=== PATIENT | female | born 1980 | race Caucasian/White ===

== ENCOUNTER 2019-06-04 18:36 | Emergency (ER) | payer OTHER ==
[2019-06-04 18:42] VITALS: RESP 16; TEMP 98.2
[2019-06-04] MEDS ORDERED: SODIUM CHLORIDE 0.9% 1,000 ML IV STA (19:04)
[2019-06-04 19:06] LABS: Glucose,Whole Blood 90 mg/dL (75-99)
[2019-06-04 19:22] LABS: Basophils % (A) 1 %; Eosinophils # (A) 0.1 k/uL (0-0.7); Eosinophils % (A) 1 %; HCT 40.2 % (34.0-46.0); HGB 13.4 gm/dL (11.4-16.0); Lymphocytes # (A) 3.4 k/uL (1.0-4.8); Lymphocytes % (A) 55 %; MCH 30.7 pg (25.0-35.0); MCHC 33.3 g/dL (31.0-37.0); MCV 92.1 fL (80.0-100.0); Mean Platelet Volume 8.1; Monocytes # (A) 0.3 k/uL (0-1.0); Monocytes % (A) 5 %; Neutrophils # (A) 2.1 k/uL (1.3-7.7); Neutrophils % (A) 34 %; Platelet Count 206 k/uL (150-450); RBC 4.36 m/uL (3.80-5.40); RDW 13.5 % (11.5-15.5); WBC 6.2 k/uL (3.8-10.6)
[2019-06-04 19:27] LABS: Appearance,Urine Clear (Clear); Bacteria,Urine Rare /hpf; Bilirubin,Urine Negative (Negative); Blood,Urine Negative (Negative); Color,Urine Yellow; Glucose,Urine (UA) Negative (Negative); Ketones,Urine Negative (Negative); Leukocyte Esterase,Urine Small (Negative); Mucus,Urine Occasional /hpf; Nitrite,Urine Negative (Negative); Protein,Urine Negative (Negative); RBC,Urine <1 /hpf (0-5); Specific Gravity,Urine 1.014 (1.001-1.035); Squamous Epithelial Cell,Urine <1 /hpf (0-4); Urobilinogen,Urine <2.0 mg/dL (<2.0); WBC,Urine 6 /hpf (0-5)
[2019-06-04 19:32] LABS: ALT 12 U/L (9-52); AST 22 U/L (14-36); African American GFR (CKD) >90 (>60 ml/min/1.73 sqM); Albumin 4.6 g/dL (3.5-5.0); Alkaline Phosphatase 44 U/L (38-126); Anion Gap 12 mmol/L; Blood Urea Nitrogen 12 mg/dL (7-17); Calcium 9.7 mg/dL (8.4-10.2); Carbon Dioxide 24 mmol/L (22-30); Chloride 103 mmol/L (98-107); Glucose 93 mg/dL (74-99); INR 0.9 (<1.2); Partial Thromboplastin Time 23.8 sec (22.0-30.0); Potassium 4.1 mmol/L (3.5-5.1); Prothrombin Time 10.1 sec (9.0-12.0); Sodium 139 mmol/L (137-145); Total Bilirubin 0.6 mg/dL (0.2-1.3); Total Protein 7.3 g/dL (6.3-8.2)
--- NOTE | 2019-06-04 19:41 | ED ---
General Adult HPI - General Chief complaint: Syncope Stated complaint: NEAR SYNCOPE X 2, GI ISSUES Time Seen by Provider: 06/04/19 18:48 Source: patient Mode of arrival: ambulatory Limitations: no limitations - History of Present Illness Initial comments: 39-year-old female patient presents to the emergency department today for evaluation after having 2 episodes of near-syncope today. Patient states that she was driving when she suddenly had onset of shortness of breath and dizziness. Patient states she felt like she was going to pass out. States that she did tap puller and switched places with her passenger. States when she sat down on the passenger states she became dizzy again and felt again like she was when the past out. Patient states that the feelings did resolve and she now feels well. She denies any chest pain with the episode. He denies any cough, hemoptysis, chest tightness, headache, blurred vision, or double vision. Heavenly t states that over the last several months she's been having issues with constipation. Patient states she has been taking stool softeners and fiber supplement without much relief. Patient states she is scheduled for colonoscopy at the end of this week with Dr. Holder. Patient states that she has been having a vague suprapubic pain. States it is very dull. Does not radiate to her back. She denies any abnormal vaginal bleeding or discharge. Denies any chance of . She denies fever or chills. Patient denies any recent rash, f nausea, vomiting, back pain, numbness, tingling, hematuria, dysuria, urinary urgency, urinary frequency, or any other complaints. Patient states she did eat normally today and has never had problems with hypoglycemia. - Related Data Allergies Allergy/AdvReac Type Severity Reaction Status Date / Time No Known Allergies Allergy Verified 06/04/19 18:42 Review of Systems ROS Statement: Those systems with pertinent positive or pertinent negative responses have been documented in the HPI. ROS Other: All systems not noted in ROS Statement are negative. Past Medical History Past Medical History: No Reported History History of Any Multi-Drug Resistant Organisms: None Reported Past Surgical History: No Surgical Hx Reported Past Psychological History: No Psychological Hx Reported Smoking Status: Never smoker Past Alcohol Use History: Occasional Past Drug Use History: None Reported General Exam Limitations: no limitations General appearance: alert, in no apparent distress, other (Physical well- developed, well-nourished adult female patient in no acute distress. Vital signs upon presentation are temperature 98.2F, pulse 80, respirations 16, blood pressure 139/81, pulse ox 100% on room air.) Eye exam: Present: normal appearance, PERRL, EOMI. Absent: scleral icterus, conjunctival injection, nystagmus, periorbital swelling ENT exam: Present: normal exam, normal oropharynx, mucous membranes moist Respiratory exam: Present: normal lung sounds bilaterally. Absent: respiratory distress, wheezes, rales, rhonchi, stridor Cardiovascular Exam: Present: regular rate, normal rhythm, normal heart sounds. Absent: systolic murmur, diastolic murmur, rubs, gallop, clicks GI/Abdominal exam: Present: soft, tenderness (Mild suprapubic tenderness), normal bowel sounds. Absent: distended, guarding, rebound, rigid Neurological exam: Present: alert, oriented X3, CN II-XII intact Psychiatric exam: Present: normal affect, normal mood Skin exam: Present: warm, dry, intact, normal color. Absent: rash Course Vital Signs 06/04/19 06/04/19 18:38 22:32 Temperature 98.2 F Pulse Rate 80 83 Respiratory 16 16 Rate Blood Pressure 139/81 123/90 O2 Sat by Pulse 100 98 Oximetry EKG Findings - EKG Comments: EKG Findings:: EKG obtained at 1918 shows normal sinus rhythm with a ventricular rate of 70, KS interval 132, QRS duration 78, QT 412, QTC 444. No evidence of ST elevation or depression. Medical Decision Making - Medical Decision Making 39-year-old female patient presents to the emergency department today for evaluation after having 2 episodes where she felt like she was going to pass out. Physical examination is unremarkable. She is neurologically intact with no focal deficits. Abdomen is soft and exhibits mild suprapubic tenderness. EKG shows normal sinus rhythm. Labs reviewed and did reveal hypothyroid but no other abnormalities. T4 is normal. She'll be discharged home at this time to increase fluids. Follow up with her primary care physician for recheck in 1-2 days. Return parameters were discussed in detail. She verbalizes understanding and agrees with this plan. - Lab Data Result diagrams: 06/04/19 18:55 06/04/19 18:55 Lab Results 06/04/19 06/04/19 06/04/19 Range/Units 18:55 18:55 18:55 WBC 6.2 (3.8-10.6) k/uL RBC 4.36 (3.80-5.40) m/uL Hgb 13.4 (11.4-16.0) gm/dL Hct 40.2 (34.0-46.0) % MCV 92.1 (80.0-100.0) fL MCH 30.7 (25.0-35.0) pg MCHC 33.3 (31.0-37.0) g/dL RDW 13.5 (11.5-15.5) % Plt Count 206 (150-450) k/uL Neutrophils % 34 % Lymphocytes % 55 % Monocytes % 5 % Eosinophils % 1 % Basophils % 1 % Neutrophils # 2.1 (1.3-7.7) k/uL Lymphocytes # 3.4 (1.0-4.8) k/uL Monocytes # 0.3 (0-1.0) k/uL Eosinophils # 0.1 (0-0.7) k/uL Basophils # 0.0 (0-0.2) k/uL PT 10.1 (9.0-12.0) sec INR 0.9 (<1.2) APTT 23.8 (22.0-30.0) sec Sodium 139 (137-145) mmol/L Potassium 4.1 (3.5-5.1) mmol/L Chloride 103 (98-107) mmol/L Carbon Dioxide 24 (22-30) mmol/L Anion Gap 12 mmol/L BUN 12 (7-17) mg/dL Creatinine 0.76 (0.52-1.04) mg/dL Est GFR (CKD-EPI)AfAm >90 (>60 ml/min/1.73 sqM) Est GFR (CKD-EPI)NonAf >90 (>60 ml/min/1.73 sqM) Glucose 93 (74-99) mg/dL POC Glucose (mg/dL) (75-99) mg/dL POC Glu Circle Saw Operator ID Calcium 9.7 (8.4-10.2) mg/dL Total Bilirubin 0.6 (0.2-1.3) mg/dL AST 22 (14-36) U/L ALT 12 (9-52) U/L Alkaline Phosphatase 44 (38-126) U/L Troponin I (0.000-0.034) ng/mL Total Protein 7.3 (6.3-8.2) g/dL Albumin 4.6 (3.5-5.0) g/dL TSH 8.540 H (0.465-4.680) mIU/L Free T4 1.13 (0.78-2.19) ng/dL Urine Color Urine Appearance (Clear) Urine pH (5.0-8.0) Ur Specific Burley (1.001-1.035) Urine Protein (Negative) Urine Glucose (UA) (Negative) Urine Ketones (Negative) Urine Blood (Negative) Urine Nitrite (Negative) Urine Bilirubin (Negative) Urine Urobilinogen (<2.0) mg/dL Ur Leukocyte Esterase (Negative) Urine RBC (0-5) /hpf Urine WBC (0-5) /hpf Ur Squamous Epith Cells (0-4) /hpf Urine Bacteria (None) /hpf Urine Mucus (None) /hpf Urine HCG, Qual (Not Detectd) 06/04/19 06/04/19 06/04/19 Range/Units 18:55 18:55 18:55 WBC (3.8-10.6) k/uL RBC (3.80-5.40) m/uL Hgb (11.4-16.0) gm/dL Hct (34.0-46.0) % MCV (80.0-100.0) fL MCH (25.0-35.0) pg MCHC (31.0-37.0) g/dL RDW (11.5-15.5) % Plt Count (150-450) k/uL Neutrophils % % Lymphocytes % % Monocytes % % Eosinophils % % Basophils % % Neutrophils # (1.3-7.7) k/uL Lymphocytes # (1.0-4.8) k/uL Monocytes # (0-1.0) k/uL Eosinophils # (0-0.7) k/uL Basophils # (0-0.2) k/uL PT (9.0-12.0) sec INR (<1.2) APTT (22.0-30.0) sec Sodium (137-145) mmol/L Potassium (3.5-5.1) mmol/L Chloride (98-107) mmol/L Carbon Dioxide (22-30) mmol/L Anion Gap mmol/L BUN (7-17) mg/dL Creatinine (0.52-1.04) mg/dL Est GFR (CKD-EPI)AfAm (>60 ml/min/1.73 sqM) Est GFR (CKD-EPI)NonAf (>60 ml/min/1.73 sqM) Glucose (74-99) mg/dL POC Glucose (mg/dL) (75-99) mg/dL POC Glu Circle Saw Operator ID Calcium (8.4-10.2) mg/dL Total Bilirubin (0.2-1.3) mg/dL AST (14-36) U/L ALT (9-52) U/L Alkaline Phosphatase (38-126) U/L Troponin I <0.012 (0.000-0.034) ng/mL Total Protein (6.3-8.2) g/dL Albumin (3.5-5.0) g/dL TSH (0.465-4.680) mIU/L Free T4 (0.78-2.19) ng/dL Urine Color Yellow Urine Appearance Clear (Clear) Urine pH 6.0 (5.0-8.0) Ur Specific Burley 1.014 (1.001-1.035) Urine Protein Negative (Negative) Urine Glucose (UA) Negative (Negative) Urine Ketones Negative (Negative) Urine Blood Negative (Negative) Urine Nitrite Negative (Negative) Urine Bilirubin Negative (Negative) Urine Urobilinogen <2.0 (<2.0) mg/dL Ur Leukocyte Esterase Small H (Negative) Urine RBC <1 (0-5) /hpf Urine WBC 6 H (0-5) /hpf Ur Squamous Epith Cells <1 (0-4) /hpf Urine Bacteria Rare H (None) /hpf Urine Mucus Occasional H (None) /hpf Urine HCG, Qual Not Detected (Not Detectd) 06/04/19 Range/Units 19:04 WBC (3.8-10.6) k/uL RBC (3.80-5.40) m/uL Hgb (11.4-16.0) gm/dL Hct (34.0-46.0) % MCV (80.0-100.0) fL MCH (25.0-35.0) pg MCHC (31.0-37.0) g/dL RDW (11.5-15.5) % Plt Count (150-450) k/uL Neutrophils % % Lymphocytes % % Monocytes % % Eosinophils % % Basophils % % Neutrophils # (1.3-7.7) k/uL Lymphocytes # (1.0-4.8) k/uL Monocytes # (0-1.0) k/uL Eosinophils # (0-0.7) k/uL Basophils # (0-0.2) k/uL PT (9.0-12.0) sec INR (<1.2) APTT (22.0-30.0) sec Sodium (137-145) mmol/L Potassium (3.5-5.1) mmol/L Chloride (98-107) mmol/L Carbon Dioxide (22-30) mmol/L Anion Gap mmol/L BUN (7-17) mg/dL Creatinine (0.52-1.04) mg/dL Est GFR (CKD-EPI)AfAm (>60 ml/min/1.73 sqM) Est GFR (CKD-EPI)NonAf (>60 ml/min/1.73 sqM) Glucose (74-99) mg/dL POC Glucose (mg/dL) 90 (75-99) mg/dL POC Glu Circle Saw Operator ID Yvette Delgado Calcium (8.4-10.2) mg/dL Total Bilirubin (0.2-1.3) mg/dL AST (14-36) U/L ALT (9-52) U/L Alkaline Phosphatase (38-126) U/L Troponin I (0.000-0.034) ng/mL Total Protein (6.3-8.2) g/dL Albumin (3.5-5.0) g/dL TSH (0.465-4.680) mIU/L Free T4 (0.78-2.19) ng/dL Urine Color Urine Appearance (Clear) Urine pH (5.0-8.0) Ur Specific Burley (1.001-1.035) Urine Protein (Negative) Urine Glucose (UA) (Negative) Urine Ketones (Negative) Urine Blood (Negative) Urine Nitrite (Negative) Urine Bilirubin (Negative) Urine Urobilinogen (<2.0) mg/dL Ur Leukocyte Esterase (Negative) Urine RBC (0-5) /hpf Urine WBC (0-5) /hpf Ur Squamous Epith Cells (0-4) /hpf Urine Bacteria (None) /hpf Urine Mucus (None) /hpf Urine HCG, Qual (Not Detectd) - Radiology Data Radiology results: report reviewed, image reviewed Two-view x-ray of the chest is obtained. Report reviewed in its entirety. Impression by Dr. Edwards shows no acute findings. KUB x-ray of the abdomen is obtained. Report was reviewed in its entirety. Impression by Dr. Edwards shows nonobstructive bowel gas pattern. Moderate amount of stool throughout the colon. Disposition Clinical Impression: Near syncope, Abdominal pain Disposition: HOME SELF-CARE Condition: Good Instructions (If sedation given, give patient instructions): Abdominal Pain (ED), Near Syncope (ED) Additional Instructions: Increase fluids. Rest. Follow up with her primary care physician for recheck as possible. Return to the emergency Department for any new, worsening, or conc erning symptoms. Is patient prescribed a controlled substance at d/c from ED?: No Referrals: Ansley Hickey MD [Primary Care Provider] - 1-2 days Time of Disposition: 22:10
[2019-06-04 21:26] LABS: T4, Free (Free Thyroxine) 1.13 ng/dL (0.78-2.19)
--- NOTE | 2019-06-04 21:38 | XR ---
EXAM: XR Abdomen, 2 Views CLINICAL HISTORY: ITS.REASON XR Reason: Pain TECHNIQUE: Frontal view of the abdomen/pelvis with upright view of the abdomen. COMPARISON: No relevant prior studies available. FINDINGS: Intraperitoneal space: No free air. Gastrointestinal tract: Moderate stool throughout the colon. No dilation. Bones/joints: Unremarkable. IMPRESSION: Nonobstructive bowel gas pattern. Moderate amount of stool throughout the colon.
--- NOTE | 2019-06-04 21:41 | XR ---
EXAM: XR Chest, 2 Views CLINICAL HISTORY: ITS.REASON XR Reason: syncope TECHNIQUE: Frontal and lateral views of the chest. COMPARISON: No relevant prior studies available. FINDINGS: Lungs: Unremarkable. No consolidation. Pleural space: Unremarkable. No pneumothorax. Heart: Unremarkable. No cardiomegaly. Mediastinum: Unremarkable. Bones/joints: Unremarkable. IMPRESSION: No acute findings.
[2019-06-04 22:33] VITALS: BP 123/90; PULSE 83
== END 2019-06-04 22:33 | disposition home or self-care (01) ==
LOC: EC 18:36
DX: R55 Syncope and collapse (principal); R10.9 Unspecified abdominal pain; R42 Dizziness and giddiness; R06.02 Shortness of breath
CPT/HCPCS: 36415; 71046; 74018; 80053; 81001; 81025; 84439; 84443; 84484; 85025; 85610; 85730; 87086; 93005; 96360; 96361; 99284

== ENCOUNTER 2019-06-09 16:54 | Emergency (ER) | payer OTHER ==
[2019-06-09 17:06] VITALS: RESP 18
[2019-06-09 18:24] LABS: HCT 39.2 % (34.0-46.0); HGB 12.9 gm/dL (11.4-16.0); MCH 30.8 pg (25.0-35.0); MCV 93.3 fL (80.0-100.0); Mean Platelet Volume 7.9; Platelet Count 204 k/uL (150-450); RDW 12.4 % (11.5-15.5)
[2019-06-09 18:32] LABS: ALT 12 U/L (9-52); AST 22 U/L (14-36); African American GFR (CKD) >90 (>60 ml/min/1.73 sqM); Albumin 4.7 g/dL (3.5-5.0); Alkaline Phosphatase 47 U/L (38-126); Anion Gap 9 mmol/L; Blood Urea Nitrogen 12 mg/dL (7-17); Carbon Dioxide 27 mmol/L (22-30); Chloride 104 mmol/L (98-107); Glucose 87 mg/dL (74-99); Potassium 4.5 mmol/L (3.5-5.1); Sodium 140 mmol/L (137-145); Total Bilirubin 0.4 mg/dL (0.2-1.3); Total Protein 7.5 g/dL (6.3-8.2)
[2019-06-09 18:49] LABS: T4, Free (Free Thyroxine) 1.26 ng/dL (0.78-2.19)
--- NOTE | 2019-06-09 19:06 | ED ---
General Adult HPI - General Chief complaint: Dizziness Stated complaint: DIZZINESS Time Seen by Provider: 06/09/19 17:42 Source: patient Mode of arrival: ambulatory Limitations: no limitations - History of Present Illness Initial comments: Patient is a 39-year-old female presents emergency Department with a near syncope episode. Patient reports earlier today she was in the grocery store when she suddenly became dizzy but did not fall. Patient reports she had to sit down to stabilize herself. Patient reports she was at the emergency department a few days ago for the same reason and the workup only revealed a mildly elevated free T4. Patient denies previous history of thyroid problems. Patient denies nausea, vomiting, diarrhea, headache, blurry vision, chest pain or chest tightness. Patient does report anxiety but denies panic attacks. Patient reports the only recent changes in her medication regimen included the addition of Colace. - Related Data Allergies Allergy/AdvReac Type Severity Reaction Status Date / Time No Known Allergies Allergy Verified 06/04/19 18:42 Review of Systems ROS Statement: Those systems with pertinent positive or pertinent negative responses have been documented in the HPI. ROS Other: All systems not noted in ROS Statement are negative. Past Medical History Past Medical History: No Reported History History of Any Multi-Drug Resistant Organisms: None Reported Past Surgical History: No Surgical Hx Reported Past Psychological History: No Psychological Hx Reported Smoking Status: Never smoker Past Alcohol Use History: Occasional Past Drug Use History: None Reported General Exam - General Exam Comments Initial Comments: General: Well-developed well-nourished distress HEENT: Normocephalic/atraumatic, PERLL, pharynx erythema, swallowing well, EAC no erythema, no exudates, TM clear, no cervical lymph nodes Neck: Supple, nontender, trachea midline Chest/Lungs: Normal respirations, no signs of respiratory distress clear to ausc ultation bilaterally no wheezes, rales, rhonchi Cardiac: Regular rate and rhythm, normal S1-S2, no murmurs rubs or gallops Abdomen/GI: Soft nontender, bowel sounds equal or quadrant x4, no guarding, no rebound no CVA tenderness Musculoskeletal: Nontender, full range of motion, no edema, strength equal bilaterally Skin: Warmth, no rashes or lesions, no cyanosis or diaphoresis Neurologic: AAO x 3, CN 2-12 intact, Psychiatric: Mood and affect normal, judgment normal Limitations: no limitations Course Vital Signs 06/09/19 17:01 Temperature 98.2 F Pulse Rate 71 Respiratory 18 Rate Blood Pressure 130/78 O2 Sat by Pulse 100 Oximetry Medical Decision Making - Medical Decision Making Patient is a 39-year-old male presenting to emergency department with a near- syncope episode. Patient was advised to have a full syncopal workup which will include labs, EKG and chest x-ray. Patient declined a chest x-ray. Labs are unremarkable except for mildly elevated free T4. EKG is unremarkable. Patient states that she has an appointment scheduled with her primary care and feels that coming to the emergency department today was a necessary. Patient reports she feels at her baseline currently. Patient's vitals are stable. Strict return parameters were thoroughly discussed with patient who is understanding and agreeable. Patient advised to follow through with her primary care appointment. Case discussed with physician. - Lab Data Result diagrams: 06/09/19 18:15 06/09/19 18:15 Lab Results 06/09/19 06/09/19 Range/Units 18:15 18:15 WBC 5.0 (3.8-10.6) k/uL RBC 4.20 (3.80-5.40) m/uL Hgb 12.9 (11.4-16.0) gm/dL Hct 39.2 (34.0-46.0) % MCV 93.3 (80.0-100.0) fL MCH 30.8 (25.0-35.0) pg MCHC 33.0 (31.0-37.0) g/dL RDW 12.4 (11.5-15.5) % Plt Count 204 (150-450) k/uL Sodium 140 (137-145) mmol/L Potassium 4.5 (3.5-5.1) mmol/L Chloride 104 (98-107) mmol/L Carbon Dioxide 27 (22-30) mmol/L Anion Gap 9 mmol/L BUN 12 (7-17) mg/dL Creatinine 0.70 (0.52-1.04) mg/dL Est GFR (CKD-EPI)AfAm >90 (>60 ml/min/1.73 sqM) Est GFR (CKD-EPI)NonAf >90 (>60 ml/min/1.73 sqM) Glucose 87 (74-99) mg/dL Calcium 10.0 (8.4-10.2) mg/dL Total Bilirubin 0.4 (0.2-1.3) mg/dL AST 22 (14-36) U/L ALT 12 (9-52) U/L Alkaline Phosphatase 47 (38-126) U/L Total Protein 7.5 (6.3-8.2) g/dL Albumin 4.7 (3.5-5.0) g/dL Free T4 1.26 (0.78-2.19) ng/dL Free T3 pg/mL 6.0 H (2.8-5.3) pg/ml Disposition Clinical Impression: Dizziness Disposition: HOME SELF-CARE Condition: Stable Instructions (If sedation given, give patient instructions): Dizziness (ED) Additional Instructions: Please follow up for primary care. Please return to emergency department if symptoms worsen. Is patient prescribed a controlled substance at d/c from ED?: No Referrals: Ansley Hickey MD [Primary Care Provider] - 1-2 days Time of Disposition: 19:04
[2019-06-09 19:26] VITALS: BP 114/78; PULSE 76; TEMP 97.8
== END 2019-06-09 19:24 | disposition home or self-care (01) ==
LOC: EC 16:54
DX: R42 Dizziness and giddiness (principal); R94.6 Abnormal results of thyroid function studies; F41.9 Anxiety disorder, unspecified
CPT/HCPCS: 36415; 80053; 84439; 84481; 85027; 93005; 99284

== ENCOUNTER → 2019-06-19 | Outpatient (CLI) | payer OTHER ==
--- NOTE | 2019-06-19 08:12 | CT ---
EXAMINATION TYPE: CT brain w con DATE OF EXAM: 06/19/2019 COMPARISON: None. HISTORY: Dizziness, near syncope CT DLP: 892.1 mGycm. Automated Exposure Control for Dose Reduction was Utilized. TECHNIQUE: CT scan of the head is performed with IV Contrast, patient injected with 100 mL of Isovu e 300. FINDINGS: The ventricles and sulci are within normal limits in size. Varela-white matter differentiat ion is maintained. Postcontrast images show no suspicious enhancing intraparenchymal mass. The globes are intact and the visualized sinuses are clear. No suspicious opacification mastoid air cells. IMPRESSION: Unremarkable study.
--- NOTE | 2019-06-19 08:14 | US ---
EXAMINATION TYPE: US thyroid st tissue head/neck DATE OF EXAM: 06/19/2019 COMPARISON: NONE CLINICAL HISTORY: R42. 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 Abnormal labs. Patient states doctor felt thyroid was enlarged. GLAND SIZE: Right Lobe: 4.2 x 1.0 x 1.3 cm Overall Parenchyma: homogenous Left Lobe: 4.3 x 1.0 x 1.5 cm Overall Parenchyma: homogeneous Isthmus Thickness: 0.2 cm NODULES RIGHT: # of nodules measured on right: 1 1. 0.2 X 0.3 x 0.2 cm hypoechoic nodule at the mid pole with well-defined margins. This nodule is wider than tall and shows no intranodular vascularity. Prior size: No previous LEFT: # of nodules measured on left: 0 ISTHMUS: # of nodules measured in the isthmus: 0 Bilateral neck scanned, no evidence of lymphadenopathy. IMPRESSION: Upper limits of normal size of the thyroid gland that is homogeneous other than a 3 mm right thyroid nodule.
== END | disposition home or self-care (01) ==
LOC: RADCTMAIN 07:22
PROVIDERS: ATTEND Internal Medicine
DX: E04.1 Nontoxic single thyroid nodule (principal); R42 Dizziness and giddiness
CPT/HCPCS: 76536; 70460; Q9967

== ENCOUNTER → 2020-08-18 | Outpatient (CLI) | payer BC ==
--- NOTE | 2020-08-19 14:12 | MM ---
Reason for exam: screening (asymptomatic). Last mammogram was performed 9 years and 6 months ago. History: Family history of breast cancer in grandmother. Taking hormonal contraceptives for 13 years. Physical Findings: A clinical breast exam by your physician is recommended on an annual basis and results should be correlated with mammographic findings. MG Screening Mammo w CAD Bilateral CC and MLO view(s) were taken. Prior study comparison: February 17, 2011, CAD bilateral diagnostic mammogram. The breast tissue is extremely dense which could obscure a lesion on mammography. No significant changes when compared with prior studies. ASSESSMENT: Negative, BI-RAD 1 RECOMMENDATION: Routine screening mammogram of both breasts in 1 year.
== END | disposition home or self-care (01) ==
LOC: RADMAMWWP 15:32
PROVIDERS: ATTEND Obstetrics & Gynecology
DX: Z12.31 Encounter for screening mammogram for malignant neoplasm of breast (principal); Z80.3 Family history of malignant neoplasm of breast
CPT/HCPCS: 77067

== ENCOUNTER → 2021-12-19 | Outpatient (CLI) | payer BC ==
--- NOTE | 2021-12-20 08:29 | MM ---
Reason for exam: screening (asymptomatic). Last mammogram was performed 1 year and 4 months ago. History: Family history of breast cancer in grandmother. Taking hormonal contraceptives for 14 years 4 months. Physical Findings: A clinical breast exam by your physician is recommended on an annual basis and results should be correlated with mammographic findings. MG 3D Screening Mammo W/Cad Bilateral CC and MLO view(s) were taken. Prior study comparison: August 18, 2020, bilateral MG screening mammo w CAD. The breast tissue is heterogeneously dense. This may lower the sensitivity of mammography. No significant changes when compared with prior studies. ASSESSMENT: Benign, BI-RAD 2 RECOMMENDATION: Routine screening mammogram of both breasts in 1 year. Patient should continue monthly self breast exams. A negative report should not preclude additional follow up of suspicious palpable abnormalities.
== END | disposition home or self-care (01) ==
LOC: RADMAMWWP 07:16
PROVIDERS: ATTEND Obstetrics & Gynecology
DX: Z12.31 Encounter for screening mammogram for malignant neoplasm of breast (principal); Z80.3 Family history of malignant neoplasm of breast
CPT/HCPCS: 77063; 77067

== ENCOUNTER → 2022-12-21 | Outpatient (CLI) | payer BC ==
--- NOTE | 2022-12-22 13:29 | MM ---
Reason for Exam: Screening (asymptomatic). Last screening mammogram was performed 12 month(s) ago. Patient History: Menarche at age 14. First Full-Term at age 24. Currently using Hormonal Contraceptives, for 14 years, 4 months. Maternal grandmother had breast cancer. Last menstrual period: 12/18/2022 Risk Values: Aixa 5 year model risk: 0.5%. NCI Lifetime model risk: 8.1%. Prior Study Comparison: 02/17/2011 Bilateral Diagnostic Mammogram, [facility]. 08/18/2020 Bilateral Screening Mammogram, [facility]. 12/19/2021 Bilateral Screening Mammogram, [facility]. Tissue Density: The breast tissue is extremely dense which could obscure a lesion on mammography. Findings: Analyzed By CAD. There is no suspicious new group of microcalcifications or new suspicious mass in either breast. Overall Assessment: Negative, BI-RAD 1 Management: Screening Mammogram of both breasts in 1 year. Some advise bilateral breast ultrasound surveillance in patients with background dense tissue. A clinical breast exam by your physician is recommended on an annual basis and results should be correlated with mammographic findings. Electronically signed and approved by: Slim Chen M.D.
== END | disposition home or self-care (01) ==
LOC: RADMAMWWP 09:29
PROVIDERS: ATTEND Obstetrics & Gynecology
DX: Z12.31 Encounter for screening mammogram for malignant neoplasm of breast (principal); Z80.3 Family history of malignant neoplasm of breast
CPT/HCPCS: 77063; 77067

== ENCOUNTER → 2024-02-26 | Outpatient (CLI) | payer BC ==
--- NOTE | 2024-02-27 07:47 | MM ---
Reason for Exam: Screening (asymptomatic). Last mammogram was performed 1 year(s) and 3 month(s) ago. Patient History: Menarche at age 14. First Full-Term at age 24. Currently using Hormonal Contraceptives, for 14 years, 4 months. Maternal grandmother had breast cancer. Last menstrual period: 02/14/2024 Risk Values: Aixa 5 year model risk: 0.6%. NCI Lifetime model risk: 8.0%. Prior Study Comparison: 02/17/2011 Bilateral Diagnostic Mammogram, [facility]. 08/18/2020 Bilateral Screening Mammogram, [facility]. 12/19/2021 Bilateral Screening Mammogram, [facility]. 12/21/2022 Bilateral MG 3D screening mammo w/cad, [facility]. Tissue Density: The breasts are extremely dense, which lowers the sensitivity of mammography. Findings: Analyzed By CAD. The pattern is symmetrical. No significant interval change is evident No suspicious groups of microcalcifications, spiculated or lobular masses, architectural distortion or other secondary signs of malignancy are mammographically apparent. Overall Assessment: Benign, BI-RAD 2 Management: Screening Mammogram of both breasts in 1 year. A negative mammogram report should not preclude additional follow up of suspicious palpable abnormalities. Patient should continue monthly self breast exam. A clinical breast exam by your physician is recommended on an annual basis and results should be correlated with mammographic findings. Electronically signed and approved by: Dc Grubbs D.O. Radiologis
== END | disposition home or self-care (01) ==
LOC: RADMAMWWP 06:55
PROVIDERS: ATTEND Obstetrics & Gynecology
DX: Z12.31 Encounter for screening mammogram for malignant neoplasm of breast (principal); Z80.3 Family history of malignant neoplasm of breast
CPT/HCPCS: 77063; 77067

== ENCOUNTER → 2025-05-06 | Outpatient (CLI) | payer BC ==
--- NOTE | 2025-05-06 07:49 | MM ---
Reason for Exam: Screening (asymptomatic). Last mammogram was performed 1 year(s) and 2 month(s) ago. Patient History: Menarche at age 14. First Full-Term at age 24. Currently using Hormonal Contraceptives, for 14 years, 4 months. Maternal grandmother had breast cancer. Last menstrual period: 04/26/2025 Risk Values: Aixa 5 year model risk: 0.7%. NCI Lifetime model risk: 7.9%. Prior Study Comparison: 12/19/2021 Bilateral Screening Mammogram, [facility]. 12/21/2022 Bilateral MG 3D screening mammo w/cad, [facility]. 02/26/2024 Bilateral MG 3D screening mammo w/cad, [facility]. Tissue Density: The breasts are heterogeneously dense, which may obscure small masses. Findings: Analyzed By CAD. There is no suspicious group of microcalcifications or new suspicious mass in either breast. Overall Assessment: Negative, BI-RAD 1 Management: Screening Mammogram of both breasts in 1 year. . Patient should continue monthly self-breast exams. A clinical breast exam by your physician is recommended on an annual basis. This exam should not preclude additional follow-up of suspicious palpable abnormalities. Note on Aixa scores and lifetime risk: 1. A Aixa score greater than 3% is considered moderate risk. If this is the case, consider specialist referral to assess eligibility for a risk reducing agent. 2. If overall lifetime risk for the development of breast cancer is 20% or higher, the patient may qualify for future screening with alternating mammogram and breast MRI. [facility], , 05/06/2025 7:46 AM. Electronically signed and approved by: Slim Chen M.D.
== END | disposition home or self-care (01) ==
LOC: RADMAMWWP 07:09
PROVIDERS: ATTEND Obstetrics & Gynecology
DX: Z12.31 Encounter for screening mammogram for malignant neoplasm of breast (principal); R92.333 Mammographic heterogeneous density, bilateral breasts; Z80.3 Family history of malignant neoplasm of breast; Z79.3 Long term (current) use of hormonal contraceptives
CPT/HCPCS: 77063; 77067